=== PATIENT | male | born 1950 | race Caucasian/White ===

== ENCOUNTER 2023-10-20 14:24 | Inpatient (IN) | payer OTHER ==
[2023-10-20] MEDS ORDERED: MORPHINE 4 MG/ML SYR ONE ×2 (15:21→17:59)
[2023-10-20] MEDS ORDERED: NA CHLORIDE 0.9% 1,000 ML ONE (15:21)
[2023-10-20] MEDS ORDERED: ONDANSETRON 4 MG/2 ML VIAL ONE (15:21)
[2023-10-20 15:34] LABS: Absolute Lymphocytes (CBC) 1.3 K/uL (0.7-4.9); Hematocrit 42.4 % (39.6-49.0); Lymphocytes % 7.2 % (15.3-44.8); MCV 87.6 fL (80-100); MPV 8.9 fL (7.6-11.3); Platelets 248 thou/uL (152-406); RBC Red Blood Cell Count 4.84 M/uL (4.33-5.43)
[2023-10-20 15:44] LABS: Protime INR 1.13
[2023-10-20 15:55] LABS: Albumin 3.3 g/dL (3.4-5.0); Bilirubin Total 0.7 mg/dL (0.2-1.0); Potassium 3.8 mEq/L (3.5-5.1); Protein, Total 7.8 g/dL (6.4-8.2)
[2023-10-20] MEDS ORDERED: CEFTRIAXONE 1000 MG/VIAL ONE (16:02)
[2023-10-20 16:16] LABS: Specific Gravity > 1.030 (1.005-1.030); Urine Bacteria None Seen /HPF (<20); Urine Bilirubin NEGATIVE (Negative); Urine Blood Negative (Negative); Urine Clarity Clear (Clear); Urine Color Yellow (Yellow); Urine Glucose NEGATIVE (Negative); Urine Mucus 4+ /HPF (None Seen); Urine Protein 1+ (Negative); Urine RBC <5 /HPF (None Seen); Urine Urobilinogen 1+ (Normal); Urine pH 5.5 (5.0-7.0)
[2023-10-20 16:17] LABS: Anisocytosis 1+; Blood Morphology Comment NOTED (NOT SEEN); Platelet Estimate ADEQ; Poikilocytosis 1+; White Blood Cell Scan OK (OK)
--- NOTE | 2023-10-20 16:51 | RAD REPORT ---
EXAM DESCRIPTION: CT - Abdomen Pelvis W Contrast - 10/20/2023 4:33 pm CLINICAL HISTORY: Abdominal pain COMPARISON: 2007 TECHNIQUE: Computed axial tomography of the abdomen pelvis was obtained. 100 cc Isovue-300 was admin istered intravenously. Oral contrast was not requested which limits evaluation of bowel and appendix All CT scans are performed using dose optimization technique as appropriate and may include automated exposure control or mA/KV adjustment according to patient size. FINDINGS: The liver, spleen, pancreas, and adrenals appear unremarkable. A tiny hepatic cyst Tiny nonobstructing right renal calculus. Parapelvic renal cysts Marked thickening of the wall of the duodenal bulb with stranding and ill-defined fluid in the adjace nt fat. Gallbladder mildly to moderately distended. The wall does not appear thickened There is no evidence of diverticulitis. Small to moderate umbilical hernia contains fat The prostate gland mildly to moderately enlarged Small right and moderate left inguinal hernias contain fat IMPRESSION: Marked thickening of the wall of the duodenal bulb most likely secondary to inflammation . Follow-up recommended Gallbladder distention may be a secondary response to the inflammation
--- NOTE | 2023-10-20 18:54 | RAD REPORT ---
EXAM DESCRIPTION: US - Abdomen Exam Limited - 10/20/2023 6:05 pm CLINICAL HISTORY: Abdominal pain. COMPARISON: September 2023 FINDINGS: 1.5 centimeter stone neck of the gallbladder. Gallbladder wall not thickened. Gallbladder mildly to moderately distended The biliary tree is normal caliber. IMPRESSION: Cholelithiasis without evidence of cholecystitis. Mild to moderate gallbladder distention
--- NOTE | 2023-10-20 19:06 | ER ---
Nurse's Notes [facility] Name: Jad Stuart Age: 73 yrs Sex: Male : 1950 Arrival Date: 10/20/2023 Time: 14:24 Bed 14 Private MD: Diagnosis: Abdominal pain, unspecified Presentation: 10/20 14:54 Chief complaint: Patient states: Vomiting since last night, slightly nauseous, can keep nj1 some of fluids down. Has been having a UTI ever since August, is on a second round of antibiotics, started on Friday. Coronavirus screen: Vaccine status: Patient reports receiving the 2nd dose of the covid vaccine. Ebola Screen: Patient denies travel to an Ebola-affected area in the 21 days before illness onset. Initial Sepsis Screen: Does the patient meet any 2 criteria? HR > 90 bpm. No. Patient's initial sepsis screen is negative. Does the patient have a suspected source of infection? No. Patient's initial sepsis screen is negative. Risk Assessment: Do you want to hurt yourself or someone else? Patient reports no desire to harm self or others. Onset of symptoms was October 19, 2023. 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 - Social history:: Smoking status: Patient denies any tobacco usage or history of. Screenin:10 [facility] ED Fall Risk Assessment (Adult) History of falling in the last 3 months, me1 including since admission No falls in past 3 months (0 pts) Confusion or Disorientation No (0 pts) Intoxicated or Sedated No (0 pts) Impaired Gait No (0 pts) Mobility Assist Device Used No (0 pt) Altered Elimination No (0 pt) Score/Fall Risk Level 0 - 2 = Low Risk Maintained a safe environment, Provided non-skid footwear, Hourly rounding (assess needs \T\ fall precautionary measures) done. Abuse screen: Denies threats or abuse. Nutritional screening: No deficits noted. Tuberculosis screening: No symptoms or risk factors identified. Assessment: 15:10 General: Appears uncomfortable, ill, well groomed, well developed, well nourished, me1 Behavior is calm, cooperative, appropriate for age, Reports Vomiting since last night, slightly nauseous, can keep some of fluids down. Has been having a UTI ever since August, is on a second round of antibiotics, started on Friday. Pain: Complains of pain in anterior aspect of right lateral abdomen and posterior aspect of right lateral abdomen Pain does not radiate. Pain currently is 8 out of 10 on a pain scale. Quality of pain is described as sharp, stabbing, Pain began 2-3 days ago. Is continuous. Neuro: Level of Consciousness is awake, alert, obeys commands, Oriented to person, place, time, situation, Appropriate for age. Cardiovascular: Capillary refill < 3 seconds Patient's skin is warm and dry. Respiratory: Airway is patent Trachea midline Respiratory effort is even, unlabored, Respiratory pattern is regular, symmetrical. GI: Abdomen is round non-distended, Reports lower abdominal pain, nausea, vomiting. : Reports burning with urination, urinary frequency, Vomiting since last night, slightly nauseous, can keep some of fluids down. Has been having a UTI ever since August, is on a second round of antibiotics, started on Friday. Vital Signs: 14:54 BP 144 / 107; Pulse 102; Resp 18; Temp 97.9(O); Pulse Ox 97% ; Weight 95.25 kg; Height nj1 5 ft. 9 in. ; Pain 3/10; 15:21 BP 135 / 102; Pulse 116; Resp 18; Pulse Ox 95% on R/A; me1 16:00 BP 149 / 106; Pulse 107; Resp 16; Pulse Ox 95% on R/A; me1 17:00 BP 147 / 102; Pulse 102; Resp 16; Pulse Ox 95% on R/A; me1 18:00 BP 151 / 104; Pulse 96; Resp 20; Pulse Ox 94% on R/A; me1 19:00 BP 150 / 103; Pulse 100; Resp 20; Pulse Ox 96% on R/A; me1 20:00 BP 137 / 97; Pulse 103; Resp 15; Pulse Ox 95% on R/A; me1 14:54 Body Mass Index 31.01 (95.25 kg, 175.26 cm) nj1 14:54 Pain Scale: Adult nj1 ED Course: 14:28 Patient arrived in ED. mg5 14:28 Oscar Amaya MD is Attending Physician. ec2 15:00 Triage completed. nj1 15:08 Arm band placed on left wrist. nj1 15:10 Patient has correct armband on for positive identification. Bed in low position. Call me1 light in reach. Side rails up X2. Provided Education on: POC. Verbalized understanding. . 15:10 No provider procedures requiring assistance completed. me1 15:19 Belinda Ariza, GAEL is Primary Nurse. me1 15:26 Blood Culture Adult (2) Sent. bc6 15:26 Lactate w/ 2H reflex if indic. Sent. bc6 15:26 Protime (+inr) Sent. bc6 15:26 Ptt, Activated Sent. bc6 15:26 CBC with Diff Sent. bc6 15:26 CMP Sent. bc6 15:26 Lipase Sent. bc6 15:26 Inserted saline lock: 20 gauge in left antecubital area, using aseptic technique. Blood bc6 collected. 16:01 Urinalysis w/ reflexes Sent. me1 16:35 CT Abd/Pelvis - IV Contrast Only In Process Unspecified. EDMS 18:05 US Abdomen Limited In Process Unspecified. EDMS 19:05 Quinn vOalle MD is Hospitalizing Provider. ec2 21:05 Patient admitted, IV remains in place. me1 Administered Medications: 15:30 Drug: NS 0.9% IV 1000 ml IV at 1 bolus Per protocol; 1000 mL bolus Route: IV; Rate: 1 me1 bolus; Site: left antecubital; 17:57 Follow up: IV Status: Completed infusion; IV Intake: 1000ml me1 15:30 Drug: Ondansetron IVP 4 mg IVP once; over 2 minutes Route: IVP; Site: left antecubital; me1 15:55 Follow up: Response: No adverse reaction; Nausea is decreased me1 15:30 Drug: morphine IVP or IV 4 mg IVP once over 4 mins Route: IVP; Infused Over: 4 mins; me1 Site: left antecubital; 15:55 Follow up: Response: No adverse reaction; Pain is decreased me1 16:05 Drug: Rocephin IV 1 grams IV at calculated rate once; Given slow IV push per pharmacy me1 instructions Route: IV; Rate: calculated rate; Site: right antecubital; 17:57 Follow up: Response: No adverse reaction; IV Status: Completed infusion me1 18:02 Drug: morphine IVP or IV 4 mg IVP once over 4 mins Route: IVP; Infused Over: 4 mins; me1 Site: left antecubital; 18:04 Follow up: Response: No adverse reaction; Pain is decreased me1 Medication: 15:10 VIS not applicable for this client. me1 Intake: 17:57 IV: 1000ml; Total: 1000ml. me1 Outcome: 19:05 Decision to Hospitalize by Provider. ec2 21:04 Admitted to Med/surg accompanied by tech, via wheelchair, room 231, with chart, Report me1 called to GAEL Marquis 21:04 Condition: stable 21:04 Instructed on the need for admit, 21:28 Patient left the ED. me1 Signatures: Dispatcher [employer] EDTiffani Smith bc6 Carissa Lipscomb RN RN nj1 Belinda Ariza RN RN me1 Ирина Knowles mg5 Oscar Amaya MD MD ec2 Corrections: (The following items were deleted from the chart) 17:53 14:54 Chief complaint: Patient states: Vomiting since last night, slightly nauseous, me1 can keep some of fluids down. Has been having a UTI ever since August, is on a second round of antibiotics, started on Friday. nj1
--- NOTE | 2023-10-20 19:06 | EDPHYS ---
Physician Documentation [facility] Name: Jad Stuart Age: 73 yrs Sex: Male : 1950 Arrival Date: 10/20/2023 Time: 14:24 Bed 14 Private MD: ED Physician Oscar Amaya HPI: 10/20 15:06 This 73 yrs old Male presents to ER via Ambulatory with complaints of Uti?, ec2 Kidney Infection?, Vomiting. 15:06 Patient arrives today for abdominal pain with associated nausea and vomiting. Reports ec2 history of urinary tract infections. Reports that he has been having decreased p.o. intake and unable to keep p.o. down. Patient reports no previous abdominal surgeries. Patient reports no cough or cold symptoms, no fevers or chills.. 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 - Social history:: Smoking status: Patient denies any tobacco usage or history of. ROS: 15:06 Constitutional: as per hpi ec2 Exam: 15:06 Constitutional: GEN: NAD Head: atraumatic Eyes: EOMI Ears: External ears are ec2 normal. CV: Tachycardia LUNGS: no respiratory distress ABD: non-distended, soft, nontender, not guarding, not rigid, negative flanks SKIN: no evidence of rashes MSK: no evidence of trauma NEURO: moves all extremities equally Vital Signs: 14:54 BP 144 / 107; Pulse 102; Resp 18; Temp 97.9(O); Pulse Ox 97% ; Weight 95.25 kg; Height nj1 5 ft. 9 in. ; Pain 3/10; 15:21 BP 135 / 102; Pulse 116; Resp 18; Pulse Ox 95% on R/A; me1 16:00 BP 149 / 106; Pulse 107; Resp 16; Pulse Ox 95% on R/A; me1 17:00 BP 147 / 102; Pulse 102; Resp 16; Pulse Ox 95% on R/A; me1 18:00 BP 151 / 104; Pulse 96; Resp 20; Pulse Ox 94% on R/A; me1 19:00 BP 150 / 103; Pulse 100; Resp 20; Pulse Ox 96% on R/A; me1 20:00 BP 137 / 97; Pulse 103; Resp 15; Pulse Ox 95% on R/A; me1 14:54 Body Mass Index 31.01 (95.25 kg, 175.26 cm) nj1 14:54 Pain Scale: Adult nj1 MDM: 15:05 Patient medically screened. ec2 15:06 Data reviewed: vital signs. ED course: Patient arrives today for evaluation nausea ec2 vomiting. Examination remarkable for tachycardia. Will obtain lab work, urine studies, CT imaging and treat the patient symptoms. . 15:58 ED course: EKG independently reviewed and interpreted by me, shows sinus tachycardia, ec2 rate 103, no acute ST segment elevations, nonconcerning intervals.. 16:00 ED course: CBC shows leukocytosis to 18.5, metabolic profile shows appropriate ec2 electrolytes, GFR 75. Lipase within normal ranges, lactic within normal ranges. Will give the patient antibiotics for empiric coverage.. 16:35 ED course: Urine with ketonuria present, no nitrates or leuk esterase identified. ec2 Noninfectious appearing. . 16:56 ED course: CT imaging shows gallbladder distention with associated inflammation. Will ec2 obtain ultrasound to further investigate this.. 18:57 ED course: Ultrasound of the gallbladder shows gallbladder distention without ec2 associated infection. Ultimately patient with duodenitis and persistent abdominal pain, will admit for continued pain management. Discussed case with hospitalist, pending admission. . 02 15:06 Order name: CBC with Diff; Complete Time: 16:35 ec2 10/20 15:06 Order name: CMP; Complete Time: 16:00 ec2 10/20 15:06 Order name: Lipase; Complete Time: 16:00 ec2 02 15:06 Order name: Urinalysis w/ reflexes; Complete Time: 16:35 ec2 02 15:06 Order name: Blood Culture Adult (2) ec2 02 15:06 Order name: Lactate w/ 2H reflex if indic.; Complete Time: 16:00 ec2 10/20 15:06 Order name: Protime (+inr); Complete Time: 16:00 ec2 10/20 15:06 Order name: Ptt, Activated; Complete Time: 16:00 ec2 10/20 16:18 Order name: CBC Smear Scan; Complete Time: 16:35 ED[facility] 10/20 19:18 Order name: CBC with Automated Diff ED[facility] 10/20 19:18 Order name: Comprehensive Metabolic Panel [facility] 10/20 15:06 Order name: CT Abd/Pelvis - IV Contrast Only; Complete Time: 16:55 ec2 10/20 16:55 Order name: US Abdomen Limited; Complete Time: 18:56 ec2 10/20 19:18 Order name: Hepatobiliary System W/ Ph [facility] 10/20 15:06 Order name: EKG; Complete Time: 15:07 ec2 10/20 19:18 Order name: CONS Physician Consult [facility] 10/20 15:06 Order name: IV Saline Lock; Complete Time: 15:26 ec2 10/20 15:06 Order name: Labs collected and sent; Complete Time: 15:26 ec2 10/20 15:06 Order name: Accucheck; Complete Time: 15:55 ec2 10/20 15:06 Order name: Cardiac monitoring; Complete Time: 15:54 ec2 10/20 15:06 Order name: EKG - Nurse/Tech; Complete Time: 15:54 ec2 10/20 15:06 Order name: IV Saline Lock - Large Bore; Complete Time: 15:26 ec2 10/20 15:06 Order name: O2 Per Protocol; Complete Time: 15:30 ec2 10/20 15:06 Order name: O2 Sat Monitoring; Complete Time: 15:30 2 10/20 15:06 Order name: Vital Signs; Complete Time: 15:30 ec2 Administered Medications: 15:30 Drug: NS 0.9% IV 1000 ml IV at 1 bolus Per protocol; 1000 mL bolus Route: IV; Rate: 1 me1 bolus; Site: left antecubital; 17:57 Follow up: IV Status: Completed infusion; IV Intake: 1000ml me1 15:30 Drug: Ondansetron IVP 4 mg IVP once; over 2 minutes Route: IVP; Site: left antecubital; me1 15:55 Follow up: Response: No adverse reaction; Nausea is decreased me1 15:30 Drug: morphine IVP or IV 4 mg IVP once over 4 mins Route: IVP; Infused Over: 4 mins; me1 Site: left antecubital; 15:55 Follow up: Response: No adverse reaction; Pain is decreased me1 16:05 Drug: Rocephin IV 1 grams IV at calculated rate once; Given slow IV push per pharmacy me1 instructions Route: IV; Rate: calculated rate; Site: right antecubital; 17:57 Follow up: Response: No adverse reaction; IV Status: Completed infusion sd1 18:02 Drug: morphine IVP or IV 4 mg IVP once over 4 mins Route: IVP; Infused Over: 4 mins; me1 Site: left antecubital; 18:04 Follow up: Response: No adverse reaction; Pain is decreased me1 Disposition Summary: 10/20/23 19:05 Hospitalization Ordered Notes: Hospitalization Status: Inpatient Admission ec2 Provider: Quinn Ovalle ec2 Location: Telemetry/MedSur (Inpatient) ec2 Condition: Stable ec2 Problem: an ongoing problem ec2 Symptoms: have improved ec2 Bed/Room Type: Standard ec2 Room Assignment: 231(10/20/23 20:19) kl Diagnosis - Abdominal pain, unspecified ec2 Forms: - Medication Reconciliation Form ec2 - SBAR form ec2 - Leadership Thank You Letter ec2 Signatures: Dispatcher [employer] Kena Benjamin RN RN aCrissa Lipscomb RN RN nj1 Belinda Ariza RN RN me1 Oscar Amaya MD MD ec2 Corrections: (The following items were deleted from the chart) 20:19 19:05 ec2
[2023-10-20] MEDS ORDERED: ONDANSETRON 4 MG/2 ML VIAL IV PRN (19:11)
[2023-10-20] MEDS ORDERED: SODIUM CHLORIDE 0.9% 10ML INJ IV PRN (21:27)
[2023-10-20] MEDS ORDERED: CEFTRIAXONE 1,000 MG in NA CHLORIDE 0.9% 50 ML IVPB SCH (22:00)
[2023-10-20] MEDS: NA CHLORIDE 0.9% 1,000 ML IV SCH (22:09)
[2023-10-20] MEDS: CEFTRIAXONE 1,000 MG in NA CHLORIDE 0.9% 50 ML IVPB SCH (22:09)
[2023-10-20] MEDS: MORPHINE 4 MG/ML SYR IV PRN (23:03)
[2023-10-20 23:17] VITALS: BMI 30.3
[2023-10-21] MEDS: ACETAMINOPHEN 325 MG TABLET PO PRN (01:00)
[2023-10-21 03:52] LABS: Absolute Lymphocytes (CBC) 2.2 K/uL (0.7-4.9); Hematocrit 36.8 % (39.6-49.0); Lymphocytes % 15.5 % (15.3-44.8); MCV 88.4 fL (80-100); MPV 9.2 fL (7.6-11.3); Platelets 196 thou/uL (152-406); RBC Red Blood Cell Count 4.16 M/uL (4.33-5.43)
[2023-10-21 04:23] LABS: Albumin 2.7 g/dL (3.4-5.0); Bilirubin Total 0.5 mg/dL (0.2-1.0); Potassium 3.9 mEq/L (3.5-5.1); Protein, Total 6.4 g/dL (6.4-8.2)
[2023-10-21] MEDS: PANTOPRAZOLE 40 MG INJ IVP SCH (08:47)
[2023-10-21] MEDS ORDERED: CEFTRIAXONE 2,000 MG in NA CHLORIDE 0.9% 100 ML IV SCH (09:00)
[2023-10-21] MEDS ORDERED: propofoL 200 MG/20 ML VIAL IV ONE (09:48)
[2023-10-21] MEDS ORDERED: LIDOCAINE 1% MPF 2 ML AMPULE ONE (09:48)
[2023-10-21] MEDS: EPINEPHRINE 1 MG/ML VIAL ONE (09:52)
[2023-10-21] MEDS: SUCRALFATE 1GM/10ML UCUP PO SCH (11:54)
[2023-10-21] MEDS: PANTOPRAZOLE INJ 80 MG in NA CHLORIDE 0.9% 250 ML IV SCH (11:54)
[2023-10-21] MEDS: NA CHLORIDE 0.9% 1,000 ML IV SCH (13:01)
--- NOTE | 2023-10-21 13:05 | P.HP ---
Certification for Inpatient Patient admitted to: Inpatient With expected LOS: >2 Midnights Practitioner: I am a practitioner with admitting privileges, knowledge of patient current condition, hospital course, and medical plan of care. Services: Services provided to patient in accordance with Admission requirements found in Title 42 Section 412.3 of the Code of Federal Regulations Patient History Date of Service: 10/21/23 Reason for admission: NAUSEA, VOMITING FOR TWO WEEKS History of Present Illness: MR. COLEMAN HAS BEEN TO OFFICE FOR PAIN R FLANK AND UA WAS FOUND TO SHOW UTI. HE WAS GIVEN CIPRO ORALLY. FOR ALL THESE TIME HE HAS HAD VOMITING MILD DAILY. HE DID NOT MENTION THAT BEFORE. HE AFTER CIPRO HAD MORE VOMITING. HE IS ADMITTED FOR MADRIGAL. HIS CT WAS NEG BEFORE. SONOGRAM SHOWED CHOLELITH BUT HIDA NEG. HE GOT EGD TODAY AFTER I CALLED DR. NG TO GET IT DONE QUICK. IT SHOWED MULTIPIPLE ESOPHAGEAL AND DUODENAL ULCERS. Allergies No Known Allergies Allergy (Unverified 10/20/23 20:53) Home medications list reviewed: Yes Home Medications: Propranolol HCl [Inderal Xl] 120 mg PO BID 10/20/23 Primidone 12.5 mg PO BEDTIME 10/21/23 - Past Medical/Surgical History Has patient received pneumonia vaccine in the past: No - Social History Smoking Status: Never smoker Alcohol use: No CD- Drugs: No Caffeine use: No Place of Residence: Home Review of Systems 10-point ROS is otherwise unremarkable Physical Examination - Vital Signs Temperature: 97.5 F Blood Pressure: 115/70 Pulse: 101 Respirations: 18 Pulse Ox (%): 93 - Physical Exam General: Alert, In no apparent distress HEENT: Atraumatic, PERRLA, Mucous membr. moist/pink, EOMI, Sclerae nonicteric Neck: Supple, 2+ carotid pulse no bruit, No LAD, Without JVD or thyroid abnormality Respiratory: Clear to auscultation bilaterally, Normal air movement Cardiovascular: Regular rate/rhythm, Normal S1 S2 Gastrointestinal: Normal bowel sounds, No tenderness Musculoskeletal: No tenderness Integumentary: No rashes Neurological: Normal gait, Normal speech, Normal strength at 5/5 x4 extr, Normal tone, Normal affect Lymphatics: No axilla or inguinal lymphadenopathy - Studies Laboratory Data (last 24 hrs) 10/20/23 10/20/23 10/20/23 15:20 15:20 15:20 WBC 18.50 H Hgb 14.1 Hct 42.4 Plt Count 248 PT 12.4 INR 1.13 APTT 28.0 Sodium 134 L Potassium 3.8 BUN 20 H Creatinine 1.06 Glucose 141 H Total Bilirubin 0.7 AST 14 L ALT 19 Alkaline Phosphatase 98 Lipase 36 Assessment and Plan - Problems (Diagnosis) (1) Persistent recurrent vomiting Current Visit: Yes Status: Acute Plan: PROTONIX DRIP FOR SEVERE ULCERS ORAL CHANGE NO NSAIDS FAIR. (2) Acute pyelonephritis Current Visit: Yes Status: Acute Plan: CONTINUE ROCEPHIN IV. - Advance Directives Does patient have a Living Will: Yes Does patient have a Durable POA for Healthcare: Yes
[2023-10-22 09:06] LABS: Absolute Lymphocytes (CBC) 1.5 K/uL (0.7-4.9); Hematocrit 38.1 % (39.6-49.0); Lymphocytes % 18.1 % (15.3-44.8); MCV 89.7 fL (80-100); MPV 8.7 fL (7.6-11.3); Platelets 191 thou/uL (152-406); RBC Red Blood Cell Count 4.25 M/uL (4.33-5.43)
[2023-10-22 09:19] LABS: Potassium 3.6 mEq/L (3.5-5.1)
[2023-10-22 10:28] VITALS: O2SAT 95
[2023-10-22 12:09] VITALS: BP 154/93; TEMP 97.3
--- NOTE | 2023-10-23 14:48 | EKG ---
Test Date: 2023-10-20 Test Time: 15:50:38 Experimental Psychologist: MEASUREMENT RESULTS: Intervals: Rate: 103 VT: 168 QRSD: 62 QT: 326 QTc: 427 [place]: P: 24 VT: 168 QRS: -3 T: 85 INTERPRETIVE STATEMENTS: Sinus tachycardia Otherwise normal ECG No previous ECG available for comparison Electronically Signed On 10-23-23 14:43:14 TONGUE PRESSER by Donte Llamas
== END 2023-10-22 14:23 | disposition home or self-care (01) | DRG 381 ==
LOC: ER 14:24 → ERHOLD 19:11 → 2ND 21:23
PROVIDERS: ADMIT Internal Medicine; ATTEND Internal Medicine
PROC: 0DB68ZX Excision of Stomach, Via Natural or Artificial Opening Endoscopic, Diagnostic (ICD-10-PCS; 2023-10-21)
PROC: 0DB28ZX Excision of Middle Esophagus, Via Natural or Artificial Opening Endoscopic, Diagnostic (ICD-10-PCS; 2023-10-21)
PROC: 0DB38ZX Excision of Lower Esophagus, Via Natural or Artificial Opening Endoscopic, Diagnostic (ICD-10-PCS; 2023-10-21)
PROC: 0DB98ZX Excision of Duodenum, Via Natural or Artificial Opening Endoscopic, Diagnostic (ICD-10-PCS; principal; 2023-10-21 09:45)
DX: K22.10 Ulcer of esophagus without bleeding (principal); K26.3 Acute duodenal ulcer without hemorrhage or perforation; N10 Acute pyelonephritis; K29.00 Acute gastritis without bleeding; Z79.899 Other long term (current) drug therapy
CPT/HCPCS: 36415; 74177; 76705; 80048; 80053; 81001; 82941; 83605; 83690; 85025; 85610; 85730; 87040; 88304; 88305; 88312; 93005; 96361; 96365; 96366; 96375; 99285; C9113; J0171; J0696; J2405; J2704; J7030; J7050; Q9967